=== PATIENT | female | born 1945 | race Caucasian/White ===

== ENCOUNTER → 2017-02-13 | Outpatient (CLI) | payer OTHER ==
[~2017-02-13] MED LIST: BALANCED SALT SOLN OPHT IRRIG 15 ML BTL ONE; CLAR10TA7 PO; HYDR12.57 PO; HYPROMELLOSE 0.3 % OPTH GEL 10 GM (0.34 FL OZ) TUBE ONE; KETO0.02 EACH EYE; LEVO25TA4 PO; LISI10TA3 PO; PEG15DRO4 EACH EYE; PHENYLEPHRINE HCL 10% OPTH SOLN 5 ML BTL ONE; PROPARACAINE HCL 0.5% OPHT SOLN 15 ML BTL ONE; REFR0.5D4 EACH EYE; SIMV20TA PO; THERSOL3 EACH EYE; TROPICAMIDE 1% OPHT SOLN 15 ML BTL ONE; VISI0.053 EACH EYE
== END ==
LOC: PHSDC 10:35
PROVIDERS: ATTEND Ophthalmology
DX: H26.491 Other secondary cataract, right eye (principal)